=== PATIENT | male | born 1990 | race Caucasian/White ===

== ENCOUNTER → 2021-12-04 18:31 | Outpatient (CLI) | payer OTHER, SELFPAY ==
--- NOTE | 2021-12-04 18:34 | DI.MRI.S_ITS ---
PROCEDURE: MR LUMBAR SPINE WO CON INDICATIONS: Low back pain, unspecified TECHNIQUE: Noncontrast sagittal T1 spin echo and T2 fast echo, sagittal STIR, axial T1 and T2 fast spin echo through the lumbar spine. In cases with scoliosis, additional coronal T2 fast spin echo may be performed. COMPARISON: None. FINDINGS: Image quality: Excellent. Alignment and Curvature: There is normal bony alignment. There is partial lumbarization of S1. No ring system assumes axial imaging was obtained from T12-L1 through S2. Bone Marrow: Marrow is of normal overall signal. No acute vertebral body compression fractures. Spinal Cord: Conus medullaris terminates at the L1-L2 level. Visualized cord demonstrates normal signal and size. Paraspinous Soft Tissues: No paravertebral masses. T12-L1: No canal stenosis or foraminal stenosis. L1-L2: No canal stenosis or foraminal stenosis. L2-L3: No canal stenosis or foraminal stenosis. L3-L4: No canal stenosis or foraminal stenosis. L4-L5: Mild disc bulge. No canal stenosis or foraminal stenosis. L5-S1: Posterior annulus tear associated with mild central posterior disc protrusion, abutting but not displacing the left S1 nerve root in the left lateral recess. No canal stenosis or foraminal stenosis. IMPRESSION: 1. In the absence of plain films are comparison, it is assumed that there is a rudimentary S1-S2 disc, and that axial imaging was obtained from T12-L1 through S2. Careful correlation for correct surgical level is recommended if surgery is contemplated. 2. There is posterior annulus tear plus mild posterior disc protrusion at L5-S1. Disc material abuts the left S1 nerve root in the left lateral recess. Dictated by: Marty Downs M.D. on 12/04/2021 at 21:58 Approved by: Marty Downs M.D. on 12/04/2021 at 22:02
== END ==
DX: M51.27 Other intervertebral disc displacement, lumbosacral region (principal)
CPT/HCPCS: 72148